=== PATIENT | male | born 1965 | race Caucasian/White ===

== ENCOUNTER 2022-01-04 21:23 | Emergency (ER) | payer BC, MEDICAID ==
[~2022-01-04] VITALS: Ht 188 cm; Wt 94.0 kg
[2022-01-04] MEDS ORDERED: ketorolac trometh. 30mg/ml inj. IV ONE (22:20)
[2022-01-04] MEDS ORDERED: HYDROcodone/acetaminophen 5mg/325mg tablet PO ONE (22:20)
[2022-01-04 22:37] LABS: BASOPHILS # (AUTO) 0.1 X10'3 (0-0.2); BASOPHILS % (AUTO) 0.7 % (0-1); EOSINOPHILS # (AUTO) 0.2 X10'3 (0-0.9); EOSINOPHILS % (AUTO) 1.8 % (0-6); HEMATOCRIT 43.6 % (42.0-52.0); HEMOGLOBIN 14.6 g/dl (14.0-17.9); LYMPHOCYTES # (AUTO) 2.3 X10'3 (1.1-4.8); LYMPHOCYTES % (AUTO) 25.4 % (21-51); MEAN CORPUSCULAR HEMOGLOBIN 30.3 PG (27.0-31.0); MEAN CORPUSCULAR HGB CONC 33.4 g/dL (33.0-36.5); MEAN CORPUSCULAR VOLUME 90.8 FL (78-98); MEAN PLATELET VOLUME 7.8 FL (7.4-10.4); MONOCYTES # (AUTO) 0.8 X10'3 (0-0.9); MONOCYTES % (AUTO) 8.6 % (2-12); NEUTROPHILS # (AUTO) 5.8 X10'3 (1.8-7.7); NEUTROPHILS % (AUTO) 63.5 % (42-75); PLATELET COUNT 326 X10'3 (140-440); RED CELL DISTRIBUTION WIDTH 13.7 % (11.5-14.5); WHITE BLOOD COUNT 9.2 X10'3 (4.5-11.0)
[2022-01-04 22:43] LABS: ALANINE AMINOTRANSFERASE 27 U/L (12-78); ALBUMIN/GLOBULIN RATIO 1.1 (1.1-1.5); ALKALINE PHOSPHATASE 57 IU/L (46-116); ANION GAP 11 (8-16); ASPARTATE AMINO TRANSFERASE 18 U/L (10-37); BILIRUBIN,TOTAL 0.3 MG/DL (0.1-1.0); BLOOD UREA NITROGEN 22 MG/DL (7-18); BUN/CREATININE RATIO 17.6 (5.4-32.0); CALCIUM 9.2 MG/DL (8.5-10.1); CHLORIDE 105 MMOL/L (99-107); CREATININE 1.25 MG/DL (0.60-1.10); GLUCOSE 92 MG/DL (70-104); POTASSIUM 3.7 MMOL/L (3.5-5.1); SODIUM 142 MMOL/L (135-145); TOTAL CARBON DIOXIDE 26.4 MMOL/L (24-32); TOTAL PROTEIN 7.6 G/DL (6.4-8.2); eGFR 60 ML/MIN
[2022-01-04] MEDS ORDERED: tamsulosin 0.4mg capsule PO ONE (22:45)
[2022-01-04 23:07] LABS: CLARITY,URINE CLEAR (Clear); COLOR,URINE YELLOW (Yellow); GLUCOSE, URINE NEGATIVE (Neg); KETONES,URINE NEGATIVE (Neg); LEUKOCYTE ESTERASE ,URINE NEGATIVE (Neg); NITRITES, URINE NEGATIVE (Neg); OCCULT BLOOD,URINE MODERATE (Neg); PROTEIN,URINE NEGATIVE (Neg); UROBILINOGEN,URINE 0.2 E.U/dL (0.2-1.0)
[2022-01-04 23:29] LABS: UA COLLECTION TYPE CLN CATCH MIDSTREAM
[2022-01-04 23:37] LABS: WBC,URINE 0-4 /HPF (0-4)
[2022-01-04 23:38] LABS: BACTERIA,URINE FEW /HPF (Neg); RBC,URINE 20-50 /HPF (0-2); SQUAMOUS EPITHELIAL CELL,UR FEW /LPF (FEW)
[2022-01-04 23:50] VITALS: BP 131/112
[2022-01-05] MEDS ORDERED: tamsulosin 0.4mg capsule PO SCH (21:00)
== END 2022-01-04 23:51 | disposition home or self-care (01) ==
LOC: VAS 21:24 → ER 23:51
DX: N20.0 Calculus of kidney (principal); G89.29 Other chronic pain; M54.59 Other low back pain
CPT/HCPCS: 36415; 80053; 81001; 85025; 96374; 99283; J1885; 96372